=== PATIENT | female | born 1990 | race Caucasian/White ===

== ENCOUNTER → 2020-10-21 | Outpatient (CLI) | payer OTHER ==
--- NOTE | 2020-10-21 17:19 | REP ---
INDICATION: US FOR GESTATIONAL DATING. COMPARISON: None. TECHNIQUE: Transabdominal and transvaginal scanning. FINDINGS: First trimester obstetric sonography demonstrates a single living intrauterine gestation in a free-floating lie. The crown-rump length of the embryonic pole is 8 mm. This corresponds with a gestational age estimate is 6 weeks 5 days. heart rate is recorded at 128 beats per minute. No subchorionic hemorrhage is seen. There is a 2.1 cm corpus luteum in the right ovary. Uterus appears somewhat retro inverted. IMPRESSION: Viable single intrauterine gestation at 6 weeks 5 days by crown-rump length. CHARLEY by sonography June 11, 2021. No complication is identified. <Electronically signed by Eduar Chavez > 10/21/20 1938
== END ==
LOC: M RAD 14:34
PROVIDERS: ATTEND Nurse Practitioner Family
DX: Z32.01 Encounter for pregnancy test, result positive (principal); Z3A.01 Less than 8 weeks gestation of pregnancy